=== PATIENT | female | born 1985 | race Caucasian/White ===

== ENCOUNTER 2016-10-08 01:13 | Inpatient (IN) | payer OTHER ==
[~2016-10-08] VITALS: Ht 172.7 cm; Wt 69.5 kg
[2016-10-08] VITALS (20 sets, daily range): BP systolic 104–177; BP diastolic 78–108; PULSE 71–100; TEMP 97.8–98.3
[~2016-10-08 01:13] MED LIST: DICLEGIS PO; MOTRIN 800800 MG/TAB PO; NORCO 325 MG-51 TAB PO; OMNICEF 300MG300 MG PO; PRENATAL1 TA7 PO; UNISOM25 MG PO; VITAMIN B-625 MG
[2016-10-08 04:24] LABS: BASO # 0.1 (0.0-0.2); BASO % 0.7 % (0.0-2.0); EOS # 0.1 (0.0-0.7); EOS % 0.8 % (0-4.0); GRAN # 5.5 (1.4-6.5); HEMATOCRIT 37.3 % (37.0-47.0); HEMOGLOBIN 13.3 g/dl (12.5-16.0); LYMPH # 1.2 (1.2-3.4); MEAN CELL VOLUME 91 fl (80.0-100.0); MEAN CORPUSCULAR HEMOGLOBIN 33 pg (27.0-31.0); MEAN CORPUSCULAR HGB CONC 36 g/dl (33.0-37.0); MEAN PLATELET VOLUME 11.8 fl (7.4-10.4); MONO # 0.7 (0.1-0.6); MONO % 8.8 % (1.7-9.3); PLATELET COUNT 194 K/mm3 (130-400); RED BLOOD COUNT 4.09 M/mm3 (4.10-5.30); REDCELL DISTRIBUTION WIDTH-CV 12.9 % (11.5-14.5); WHITE BLOOD COUNT 7.5 K/mm3 (4.8-10.8)
[2016-10-08 05:44] LABS: ADJUSTED CALCIUM 9.4 mg/dL (8.4-10.2); BILIRUBIN,TOTAL 0.9 mg/dL (0.0-1.0); CALCIUM 9.4 mg/dL (8.4-10.2); CREATININE, serum 0.56 mg/dL (0.52-1.25); POTASSIUM 3.9 mmol/L (3.4-5.0)
[2016-10-09 07:23] VITALS: BP 129/84; PULSE 77; TEMP 97.9
[2016-10-09] MEDS ORDERED: MOTRIN 800800 MG/TAB PO (10:01)
[2016-10-09] MEDS ORDERED: PERCOCET 325 MG1 TA2 PO (10:01)
[2016-10-09 15:26] VITALS: BP 128/81; PULSE 82; TEMP 97.9
[2016-10-09 20:25] VITALS: BP 126/80; PULSE 96; TEMP 97.8
[2016-10-10 08:41] VITALS: BP 118/74; PULSE 86; TEMP 98
== END 2016-10-10 13:50 | disposition home or self-care (01) | DRG 775 ==
LOC: LDRO 01:13 → LDR 02:09 → OB 02:09 → LDRO 10-25 15:41
PROVIDERS: Obstetrics & Gynecology
PROC: 10E0XZZ Delivery of Products of Conception, External Approach (ICD-10-PCS; principal; 2016-10-08)
PROC: 0UQMXZZ Repair Vulva, External Approach (ICD-10-PCS; 2016-10-08)
PROC: 0HQ9XZZ Repair Perineum Skin, External Approach (ICD-10-PCS; 2016-10-08)
DX: O70.0 First degree perineal laceration during delivery (principal); O71.82 Other specified trauma to perineum and vulva; Z3A.37 37 weeks gestation of pregnancy; Z37.0 Single live birth
CPT/HCPCS: J2590; J7120

== ENCOUNTER → 2020-04-12 | Outpatient (CLI) | payer OTHER ==
[~2020-04-12] MED LIST changes: +PERCOCET 325 MG1 TA2 PO
== END ==
LOC: ZCOL.LAB 16:39
DX: R50.9 Fever, unspecified (principal); R53.83 Other fatigue; R19.7 Diarrhea, unspecified; Z20.828 Contact with and (suspected) exposure to other viral communicable diseases